=== PATIENT | female | born 1955 | race Caucasian/White ===

== ENCOUNTER → 2019-11-04 05:07 | Outpatient (CLI) | payer MEDICARE, MEDICAID, SELFPAY ==
[2019-11-04 07:05] LABS: INR 2.47 (0.9-1.1); Prothrombin Time 24.6 seconds (9.4-11.8)
== END ==
PROVIDERS: PCP Emergency Medicine; Visit Provider Emergency Medicine
DX: Z51.81 Encounter for therapeutic drug level monitoring (principal); Z79.01 Long term (current) use of anticoagulants
CPT/HCPCS: 85610

== ENCOUNTER → 2019-12-16 09:50 | Outpatient (CLI) | payer MEDICARE, MEDICAID, SELFPAY ==
--- NOTE | 2019-12-16 09:54 | MM_ITS ---
PROCEDURE: MM DIG SCREENING MAMM BI W/CAD Digital Breast Tomosynthesis Included CLINICAL INDICATION: SCREENING The patient is from a [facility] and there is limited information, and the patient is not sure when or where previous mammograms were performed COMPARISON: No exams were available for comparison TECHNIQUE: Standard CC and MLO images and 3D Tomosynthesis was obtained. R2 CAD reviewed. FINDINGS: Mild to moderate scattered fibroglandular densities are seen in both breasts. The nipples are inverted bilaterally. There is a possible asymmetric density right breast best seen on the CC projection and CC lacy images. There is questionable asymmetric density central portion of the right breast on the MLO projection recommend the patient return for spot compression views and ultrasound for additional evaluation. IMPRESSION: Fibrofatty parenchyma with possible asymmetric density and/or densities BI-RAD Category: 0 Need Additional Imaging Evaluation FOLLOW-UP: IMM Immediate Follow-up Recommended (A letter has been sent to the patient regarding results of the study.) Dictated by: Dr. Robby Bashir MD 12/17/2019 08:[address] Robby Bashir MD in [place] 12/17/2019 08:30
== END ==
PROVIDERS: PCP Emergency Medicine; Visit Provider Emergency Medicine
DX: Z12.31 Encounter for screening mammogram for malignant neoplasm of breast (principal)
CPT/HCPCS: 77063; 77067

== ENCOUNTER → 2019-12-24 13:29 | Outpatient (CLI) | payer MEDICARE, MEDICAID, SELFPAY ==
--- NOTE | 2019-12-24 13:43 | MM_ITS ---
PROCEDURE: MM DIG MAMM DX UNILAT RT CAD Digital Breast Tomosynthesis Included CLINICAL INDICATION: ABN MAMM Possible asymmetric glandular elements central portion right breast COMPARISON: No exams were available for comparison TECHNIQUE: Standard CC and MLO images and 3D Tomosynthesis was obtained. R2 CAD reviewed. FINDINGS: The patient returns for additional views right breast with spot compression MLO and CC views and 90 degree lateral view. The additional views particularly the spot compression views show the area to compress lessening concern for a true lesion. Ultrasound exam performed the same date showed no abnormality. IMPRESSION: Basically negative problem solving views with mild asymmetric glandular elements right breast but with no suspicious lesions seen BI-RAD Category: 1 Negative FOLLOW-UP: 1YR 1 Year Follow-up (A letter has been sent to the patient regarding results of the study.) Dictated by: Dr. Robby Bashir MD 12/30/2019 07:[address] Robby Bashir MD in [place] 12/30/2019 07:41
--- NOTE | 2019-12-24 13:43 | US_ITS ---
PROCEDURE: US BREAST RT COMPLETE CLINICAL INDICATION: ABN MAMM Possible asymmetric glandular elements central portion right breast COMPARISON: No exams were available for comparison FINDINGS: Targeted imaging of the central portion of the right breast shows no abnormal cystic or solid lesion and there are no findings to suggest architectural distortion. There is a normal appearing node in the axilla. IMPRESSION: Negative ultrasound right breast Dictated by: Dr. Robby Bashir MD 12/30/2019 07:[address] Robby Bashir MD in [place] 12/30/2019 07:38
== END ==
PROVIDERS: PCP Emergency Medicine; Visit Provider Emergency Medicine
DX: R92.8 Other abnormal and inconclusive findings on diagnostic imaging of breast (principal)
CPT/HCPCS: 76641; 77061; 77065; G0279

== ENCOUNTER → 2020-08-01 02:11 | Outpatient (CLI) | payer MEDICARE, MEDICAID, SELFPAY ==
[2020-08-02 11:03] LABS: Covid-19 Nasal PCR Sendout P&C POSITIVE
== END ==
PROVIDERS: Visit Provider Emergency Medicine
DX: U07.1 COVID-19 (principal)
CPT/HCPCS: U0004

== ENCOUNTER → 2020-12-20 09:24 | Outpatient (CLI) | payer MEDICARE, MEDICAID, SELFPAY ==
--- NOTE | 2020-12-20 09:28 | MM_ITS ---
PROCEDURE INFORMATION: Exam: MG Screening 3D Mammography Exam date and time: 12/20/2020 9:28 AM Age: 65 years old Clinical indication: Encounter for screening mammogram for malignant neoplasm of breast TECHNIQUE: Imaging protocol: Screening tomosynthesis and 2D mammography including computer-aided detection (CAD) when performed. COMPARISON: 1. MG MM DIG MAMM DX UNILAT RT CAD 12/24/2019 1:46 PM 2. MG MM DIG SCREENING MAMM BI W/CAD 12/16/2019 9:59 AM FINDINGS: MAMMOGRAPHY: Breast composition: The breast tissue is composed of scattered areas of fibroglandular density. Mass: None. Architectural distortion: None. Calcifications: No suspicious calcifications. Asymmetric density: None. Skin thickening: None. Axillary adenopathy: None. IMPRESSION: No mammographic evidence of malignancy. Annual screening is recommended unless otherwise clinically indicated. ASSESSMENT: BI-RADS Category 1: Negative
== END ==
PROVIDERS: PCP Emergency Medicine; Visit Provider Emergency Medicine
DX: Z12.31 Encounter for screening mammogram for malignant neoplasm of breast (principal)
CPT/HCPCS: 77063; 77067

== ENCOUNTER → 2021-12-24 14:42 | Outpatient (CLI) | payer MEDICARE, MEDICAID, SELFPAY ==
--- NOTE | 2021-12-24 14:46 | MM_ITS ---
PROCEDURE INFORMATION: Exam: MG Bilateral Screening 3D Mammography Exam date and time: 12/24/2021 2:41 PM Age: 66 years old Clinical indication: Screening mammogram. Family history of breast cancer TECHNIQUE: Imaging protocol: Bilateral Screening tomosynthesis and 2D mammography including computer-aided detection (CAD) when performed. COMPARISON: 1. MG MM DIG SCREENING MAMM BI W/CAD 12/20/2020 9:26 AM 2. MG MM DIG MAMM DX UNILAT RT CAD 12/24/2019 1:46 PM 3. MG MM DIG SCREENING MAMM BI W/CAD 12/16/2019 9:59 AM 4. US BREAST RT COMPLETE 12/24/2019 1:55 PM FINDINGS: MAMMOGRAPHY: Breast composition: There are scattered areas of fibroglandular density. Mass: None. Architectural distortion: No new or suspicious architectural distortion. Calcifications: No new or suspicious calcifications are present Asymmetric density: No new or suspicious asymmetric density is present Skin thickening: None. Axillary adenopathy: None. IMPRESSION: No mammographic evidence of malignancy. Recommend annual screening mammography unless otherwise clinically indicated. ASSESSMENT: BI-RADS category 1: Negative
== END ==
PROVIDERS: PCP Emergency Medicine; Visit Provider Emergency Medicine
DX: Z12.31 Encounter for screening mammogram for malignant neoplasm of breast (principal)
CPT/HCPCS: 77063; 77067

== ENCOUNTER → 2022-11-08 22:51 | Outpatient (CLI) | payer MEDICARE, MEDICAID, SELFPAY ==
[2022-11-08 23:00] LABS: Microscopic, Urine URINE MICROSCOPIC (MICROSCOPIC)
[2022-11-09 00:55] LABS: Appearance,Urine CLEAR (Clear); Bilirubin,Urine Negative (Negative); Blood, Urine Negative (Negative); Color,Urine YELLOW (Yellow); Glucose,Urine (UA) Negative (Negative); Ketones,Urine Negative (Negative); Leukocyte Esterase,Urine Negative (Negative); Nitrate,Urine Negative (Negative); PH,Urine 5.5 (5.0-8.5); Protein,Urine Negative (Negative); Specific Gravity, Urine >= 1.030 (1.005-1.030); Urobilinogen,Urine 0.2 EU/dl (0.2)
[2022-11-09 02:19] LABS: Bacteria,Urine Trace /lpf; Calcium Oxalate Crystals,Urine 2+ /lpf
== END ==
PROVIDERS: PCP Emergency Medicine; Visit Provider Emergency Medicine
DX: Z79.899 Other long term (current) drug therapy (principal)
CPT/HCPCS: 81001

== ENCOUNTER → 2022-12-27 15:03 | Outpatient (CLI) | payer MEDICARE, MEDICAID, SELFPAY ==
--- NOTE | 2022-12-27 15:03 | MM_ITS ---
PROCEDURE INFORMATION: Exam: MG Bilateral Screening 3D Mammography Exam date and time: 12/27/2022 2:51 PM Age: 67 years old Clinical indication: Screening examination TECHNIQUE: Imaging protocol: Bilateral Screening tomosynthesis and 2D mammography including computer-aided detection (CAD) when performed. COMPARISON: 1. MG MM DIG SCREENING MAMM BI W/CAD 12/24/2021 2:41 PM 2. MG MM DIG SCREENING MAMM BI W/CAD 12/20/2020 9:26 AM FINDINGS: MAMMOGRAPHY: Breast composition: There are scattered areas of fibroglandular density. Mass: None. Architectural distortion: None. Calcifications: No suspicious calcifications. Asymmetric density: None. Skin thickening: None. Axillary adenopathy: None. IMPRESSION: No mammographic evidence of malignancy. Annual screening is recommended unless otherwise clinically indicated. ASSESSMENT: BI-RADS Category 1: Negative
== END ==
PROVIDERS: PCP Emergency Medicine; Visit Provider Emergency Medicine
DX: Z12.31 Encounter for screening mammogram for malignant neoplasm of breast (principal)
CPT/HCPCS: 77063; 77067

== ENCOUNTER → 2023-06-17 16:50 | Outpatient (CLI) | payer MEDICARE, MEDICAID, SELFPAY ==
[2023-06-17 19:47] LABS: Chloride 103 mmol/L (98-107); Potassium 4.7 mmoL/L (3.5-5.1); Sodium 138 mmol/L (136-145)
[2023-06-17 19:50] LABS: Alanine Aminotransferase 17 U/L (12-78); Albumin Level 3.9 g/dl (3.5-5.0); Albumin/Globulin Ratio 1.5 (1.1-1.8); Alkaline Phosphatase 73 U/L (38-126); Anion Gap 10.7 mEq/L (5-15); Aspartate Amino Transferase 24 U/L (14-36); Bilirubin,Total 0.3 mg/dl (0.2-1.3); Blood Urea Nitrogen 21 mg/dl (7-17); Carbon Dioxide 29 mmol/L (22.0-30.0); Estimated Glomerular Filt Rate 62 ml/min (>60); GFR (African American) 76 ML/MIN (>60); Globulin 2.6 g/dL (1.3-3.2); Total Protein,Serum 6.5 g/dl (6.3-8.2)
[2023-06-17 19:51] LABS: Calcium 8.9 mg/dl (8.4-10.2); Glucose 81 mg/dl (74-100)
== END ==
PROVIDERS: PCP Obstetrics & Gynecology; Visit Provider Obstetrics & Gynecology
DX: I26.99 Other pulmonary embolism without acute cor pulmonale (principal)
CPT/HCPCS: 80053

== ENCOUNTER 2023-07-14 13:33 | Outpatient (CLI) | payer MEDICARE, MEDICAID, SELFPAY ==
[2023-07-14 13:58] LABS: INR 1.32 (0.9-1.1)
== END 2023-07-14 23:59 ==
LOC: LAB.DROPOF 13:35
PROVIDERS: PCP Internal Medicine; Visit Provider Internal Medicine
DX: Z51.81 Encounter for therapeutic drug level monitoring; Z79.01 Long term (current) use of anticoagulants
CPT/HCPCS: 85610

== ENCOUNTER 2024-06-14 15:16 | Outpatient (CLI) | payer MEDICARE, MEDICAID, SELFPAY ==
--- NOTE | 2024-06-14 15:27 | MM_ITS ---
PROCEDURE INFORMATION: Exam: MG Bilateral Screening 3D Mammography Exam date and time: 06/14/2024 3:13 PM Age: 68 years old Clinical indication: Screening examination TECHNIQUE: Imaging protocol: Bilateral Screening tomosynthesis and 2D mammography including computer-aided detection (CAD) when performed. COMPARISON: 1. MG MM DIG SCREENING MAMM BI W/CAD 12/27/2022 2:51 PM 2. MG MM DIG SCREENING MAMM BI W/CAD 12/24/2021 2:41 PM FINDINGS: MAMMOGRAPHY: Breast composition: There are scattered areas of fibroglandular density. Mass: None. Architectural distortion: None. Calcifications: No suspicious calcifications. Asymmetric density: None. Skin thickening: None. Axillary adenopathy: None. IMPRESSION: No mammographic evidence of malignancy. Annual screening is recommended unless otherwise clinically indicated. ASSESSMENT: BI-RADS Category 1: Negative.
== END 2024-06-14 23:59 | disposition home or self-care (01) ==
LOC: RAD 15:17
PROVIDERS: PCP Nurse Practitioner Family; Visit Provider Nurse Practitioner Family
DX: Z12.31 Encounter for screening mammogram for malignant neoplasm of breast (principal)
CPT/HCPCS: 77063; 77067

== ENCOUNTER 2024-10-21 08:33 | Outpatient (CLI) | payer MEDICARE, MEDICAID, SELFPAY ==
[2024-10-21 08:51] LABS: Microscopic, Urine URINE MICROSCOPIC (MICROSCOPIC)
[2024-10-21 09:09] LABS: Appearance,Urine CLOUDY (Clear); Bilirubin,Urine Negative (Negative); Blood, Urine Negative (Negative); Color,Urine YELLOW (Yellow); Glucose,Urine (UA) Negative (Negative); Ketones,Urine Negative (Negative); Leukocyte Esterase,Urine 3+ (Negative); Nitrate,Urine POSITIVE (Negative); Protein,Urine Negative (Negative); Specific Gravity, Urine 1.015 (1.005-1.030); Urobilinogen,Urine 0.2 EU/dl (0.2)
[2024-10-21 09:23] LABS: Bacteria,Urine 4+ /lpf; WBC,Urine 20-50 #/hpf (0-3)
== END 2024-10-21 23:59 | disposition home or self-care (01) ==
LOC: LAB.DROPOF 08:34
PROVIDERS: PCP Family Medicine; Visit Provider Family Medicine
DX: R30.0 Dysuria (principal)
CPT/HCPCS: 81001; 87086; 87088; 87186

== ENCOUNTER 2024-12-10 08:03 | Outpatient (CLI) | payer MEDICARE, MEDICAID, SELFPAY ==
[2024-12-10 09:21] LABS: Chol/HDL Ratio 3.3 (1-3.5); Cholesterol 195 mg/dl (140-200); HDL Cholesterol 60 mg/dl (40-60); Triglycerides 111 mg/dl (30-150); VLDL Cholesterol 22 mg/dL (0-40)
== END 2024-12-10 23:59 | disposition home or self-care (01) ==
PROVIDERS: PCP Family Medicine; Visit Provider Nurse Practitioner Family
DX: Z79.899 Other long term (current) drug therapy (principal); Z13.220 Encounter for screening for lipoid disorders
CPT/HCPCS: 36415; 80061

== ENCOUNTER 2025-02-23 06:59 | Outpatient (CLI) | payer MEDICARE, MEDICAID, SELFPAY ==
--- OUTSIDE RECORDS SUMMARY | 2025-02-23 07:01 | XMS_ITS | Clinical Summary ---
Author Organization [facility] Address [address] [place] [phone] Phone Care Team Providers Care Nut And Bolt Assembler Name Role Phone Unavailable Primary Care Provider Unavailabl e Allergies No known active allergies Medications * This document contains information received from the source organization and may not represent a complete record from that organization. risperiDONE (RISPERDAL) 1 mg Oral TabletIndication s:Schizoaffectiv e disorder, unspecified type (HCC) Take one tablet three times daily 90 Tab 5 04/01/2016 Active Active Problems Problem Noted Date Diagnosed Date Schizoaffective disorder 04/01/2016 Moderate intellectual disability 04/01/2016 Social History Tobacco Use Types Packs/Day Years Used Date Smoking Tobacco: Former Smokeless Tobacco: Never Alcohol Use Standard Drinks/Week Comments Not Currently 0 (1 standard drink = 0.6 oz pur e alcohol) Sexually Active Control Partners Comments Not Currently Comments Unknown Sex and Gender Information Value Date Recorded Sex Assigned at Not on file Legal Sex Female 9:54 AM EDT Gender Identity Not on file Sexual Orientation Not on file Obstetrics History Plan of Treatment Health Maintenance Due Date Last Done Comments Wellness Exam Medicare 1958 Hepatitis C Screening 1973 DTaP/TDaP/Td (1 - Tdap) 1974 Breast Cancer Screening 1995 Cologuard 2000 Colon Cancer Screening 2000 Colonoscopy 2000 FIT 2000 Sigmoidoscopy 2000 Virtual Colonography 2000 Pneumococcal Vaccine 50+ (1 of 1 - PCV) 2005 Zoster (1 of 2) 2005 Bone Density Screening 2020 COVID-19 Vaccine ( - 2023-2 5 season) 2024 Influenza Vaccine (#1) 2025 Hepatitis B Vaccine Aged Out No longe r eligible based on patient's age to complete this topic Meningococcal B Vaccine Aged Out No l onger eligible based on patient's age to complete this topic Insurance SUSANA [place]LEY [id number] [place] [address] MEDICAID [place]
[2025-02-23 07:07] LABS: Hematocrit 41.7 % (37.0-47.0); Hemoglobin 13.5 g/dL (12.2-16.2); Mean Corpuscular HGB Conc 32.4 g/dL (31.8-35.4); Mean Corpuscular Hemoglobin 26.8 pg (27.0-31.2); Mean Corpuscular Volume 82.9 fl (81-99); Platelet Count 229 K/mm3 (142-424); Red Blood Count 5.03 M/mm3 (4.20-5.40); White Blood Count 5.7 K/mm3 (4.8-10.8)
[2025-02-23 07:32] LABS: Albumin Level 3.8 g/dl (3.5-5.0); Chloride 105 mmol/L (98-107)
[2025-02-23 07:33] LABS: Potassium 4.3 mmoL/L (3.5-5.1); Sodium 138 mmol/L (136-145)
[2025-02-23 07:35] LABS: Alanine Aminotransferase 13 U/L (12-78); Anion Gap 7.3 mEq/L (5-15); Aspartate Amino Transferase 20 U/L (14-36); Blood Urea Nitrogen 18 mg/dl (7-17); Carbon Dioxide 30 mmol/L (22.0-30.0); Creatinine,Serum 0.80 mg/dl (0.52-1.04); Estimated Glomerular Filt Rate 71 ml/min (>60); GFR (African American) 86 ML/MIN (>60)
[2025-02-23 07:36] LABS: Albumin/Globulin Ratio 1.6 (1.1-1.8); Alkaline Phosphatase 80 U/L (38-126); Bilirubin,Total 0.4 mg/dl (0.2-1.3); Calcium 9.2 mg/dl (8.4-10.2); Globulin 2.4 g/dL (1.3-3.2); Glucose 81 mg/dl (74-100); Iron 59 ug/dL (37-170); Total Protein,Serum 6.2 g/dl (6.3-8.2)
[2025-02-23 07:46] LABS: Total Iron Binding Capacity 299 ug/dL (265-497)
[2025-02-23 08:09] LABS: Thyroid Stimulating Hormone 5.91 uIU/mL (0.465-4.68)
[2025-02-23 08:13] LABS: Ferritin 20.3 ng/ml (11.1-264)
[2025-02-23 08:25] LABS: Hepatitis C Ab Qual. W/ RFX NEGATIVE (Negative)
[2025-02-23 08:26] LABS: RBC Morphology Normal
[2025-02-23 08:27] LABS: Total Cells Counted 100
[2025-02-23 12:56] LABS: Free T4 (Free Thyroxine) 1.02 ng/dl (0.78-2.19)
== END 2025-02-23 23:59 | disposition home or self-care (01) ==
PROVIDERS: PCP Nurse Practitioner Family; Visit Provider Nurse Practitioner Family
DX: D50.9 Iron deficiency anemia, unspecified (principal); R63.5 Abnormal weight gain; F25.9 Schizoaffective disorder, unspecified; Z11.4 Encounter for screening for human immunodeficiency virus [HIV]; Z11.59 Encounter for screening for other viral diseases
CPT/HCPCS: 36415; 80053; 82728; 83540; 83550; 84439; 84443; 85007; 85014; 85018; 85048; 85049; 86803; 87389

== ENCOUNTER 2025-05-09 16:47 | Outpatient (CLI) | payer MEDICARE, MEDICAID, SELFPAY ==
--- OUTSIDE RECORDS SUMMARY | 2025-05-09 16:53 | XMS_ITS | Clinical Summary ---
Author Organization [facility] Address [address] [place] [phone] Phone Care Team Providers Care Wig Stylist Name Role Phone Unavailable Primary Care Provider [...] on file Sexual Orientation Not on file Plan of Treatment Health Maintenance Due Date Last Done Comments Wellness Exam Medicare 1958 Hepatitis C Screening 1973 DTaP/TDaP/Td (1 - Tdap) 1974 Breast Cancer Screening 1995 Cologuard 2000 Colon Cancer Screening 2000 Colonoscopy 2000 FIT 2000 Sigmoidoscopy 2000 Virtual Colonography 2000 Pneumococcal Vaccine 50+ (1 of 1 - PCV) 2005 Zoster (1 of 2) 2005 Bone Density Screening 2020 COVID-19 Vaccine (2024-2 6 season) 2025 Influenza Vaccine (#1) 2025 Hepatitis B Vaccine Aged Out No longe r eligible based on patient's age to complete this topic Meningococcal B Vaccine Aged Out No l onger eligible based on patient's age to complete this topic Insurance SUSA[place] [id number] [place] [address] MED[place]
[2025-05-09 18:05] LABS: Coronavirus 19, PCR Not Detected (NotDetected); Influenza A, PCR Not Detected (NotDetected); Influenza B, PCR Not Detected (NotDetected)
== END 2025-05-09 23:59 | disposition home or self-care (01) ==
PROVIDERS: PCP Family Medicine; Visit Provider Family Medicine
DX: J18.9 Pneumonia, unspecified organism (principal); R09.89 Other specified symptoms and signs involving the circulatory and respiratory systems; R05.1 Acute cough
CPT/HCPCS: 87631

== ENCOUNTER 2025-05-27 07:43 | Outpatient (CLI) | payer MEDICARE, MEDICAID, SELFPAY ==
--- OUTSIDE RECORDS SUMMARY | 2025-05-27 07:46 | XMS_ITS | Clinical Summary ---
Author Organization [facility] Address [address] [place] [phone] Phone Care Team Providers Care Qual Field Manager Name Role Phone Unavailable Primary Care Provider [...] to complete this topic Insurance SUSANA [place]LEY [id number] [place] [address] [place]
[2025-05-27 08:55] LABS: Free T4 (Free Thyroxine) 0.86 ng/dl (0.78-2.19)
[2025-05-27 09:08] LABS: Thyroid Stimulating Hormone 2.65 uIU/mL (0.465-4.68)
== END 2025-05-27 23:59 | disposition home or self-care (01) ==
LOC: LAB.DROPOF 07:44
PROVIDERS: PCP Family Medicine; Visit Provider Nurse Practitioner Family
DX: E03.9 Hypothyroidism, unspecified (principal)
CPT/HCPCS: 36415; 83970; 84439; 84443

== ENCOUNTER 2025-05-30 08:21 | Outpatient (CLI) | payer MEDICARE, MEDICAID, SELFPAY ==
[2025-05-30 09:04] LABS: Free T4 (Free Thyroxine) 0.88 ng/dl (0.78-2.19)
[2025-05-30 09:16] LABS: Thyroid Stimulating Hormone 3.57 uIU/mL (0.465-4.68)
== END 2025-05-30 23:59 | disposition home or self-care (01) ==
LOC: LAB.DROPOF 08:22
PROVIDERS: PCP Family Medicine; Visit Provider Nurse Practitioner Family
DX: E03.9 Hypothyroidism, unspecified (principal)
CPT/HCPCS: 36415; 84439; 84443; 86376

== ENCOUNTER 2025-06-13 06:12 | Outpatient (CLI) | payer MEDICARE, MEDICAID, SELFPAY ==
--- OUTSIDE RECORDS SUMMARY | 2025-06-13 06:15 | XMS_ITS | Clinical Summary ---
Author Organization [facility] Address [address] [place] [phone] Phone Care Team Providers Care Marketing Information Manager Name Role Phone Unavailable Primary Care [...] to complete this topic Insurance SUSANA [place]LEY [id number] [place] [address] [place]
[2025-06-13 06:26] LABS: Hematocrit 40.3 % (37.0-47.0); Hemoglobin 13.2 g/dL (12.2-16.2); Immature Granulocytes % 0.2 %; Mean Corpuscular HGB Conc 32.8 g/dL (31.8-35.4); Mean Corpuscular Hemoglobin 27.0 pg (27.0-31.2); Mean Corpuscular Volume 82.6 fl (81-99); Nucleated Red Blood Cells % 0 %; Platelet Count 248 K/mm3 (142-424); Red Blood Count 4.88 M/mm3 (4.20-5.40); Red Cell Distribution Width-SD 39.8 fL; White Blood Count 4.6 K/mm3 (4.8-10.8)
[2025-06-13 06:59] LABS: Iron 59 ug/dL (37-170)
[2025-06-13 07:06] LABS: Valproic Acid, (Depakene) 16.6 ug/ml (50-100)
[2025-06-13 07:10] LABS: Total Iron Binding Capacity 242 ug/dL (265-497)
[2025-06-13 07:35] LABS: Ferritin 20.4 ng/ml (11.1-264)
== END 2025-06-13 23:59 | disposition home or self-care (01) ==
LOC: LAB.DROPOF 06:13
PROVIDERS: PCP Family Medicine; Visit Provider Family Medicine
DX: D50.9 Iron deficiency anemia, unspecified (principal); Z51.81 Encounter for therapeutic drug level monitoring
CPT/HCPCS: 36415; 80164; 82728; 83540; 83550; 85025

== ENCOUNTER 2025-06-22 10:21 | Outpatient (CLI) | payer MEDICARE, MEDICAID, SELFPAY ==
[2025-06-22 11:02] LABS: Hematocrit 43.2 % (37.0-47.0); Hemoglobin 14.0 g/dL (12.2-16.2); Immature Granulocytes % 0.2 %; Mean Corpuscular HGB Conc 32.4 g/dL (31.8-35.4); Mean Corpuscular Hemoglobin 26.9 pg (27.0-31.2); Mean Corpuscular Volume 82.9 fl (81-99); Nucleated Red Blood Cells % 0 %; Platelet Count 275 K/mm3 (142-424); Red Blood Count 5.21 M/mm3 (4.20-5.40); Red Cell Distribution Width-SD 39.9 fL; White Blood Count 5.9 K/mm3 (4.8-10.8)
[2025-06-22 11:31] LABS: Iron 69 ug/dL (37-170)
[2025-06-22 11:42] LABS: Total Iron Binding Capacity 291 ug/dL (265-497); Valproic Acid, (Depakene) 11.2 ug/ml (50-100)
[2025-06-22 12:07] LABS: Ferritin 40.3 ng/ml (11.1-264)
== END 2025-06-22 23:59 | disposition home or self-care (01) ==
LOC: LAB.DROPOF 10:22
PROVIDERS: PCP Family Medicine; Visit Provider Nurse Practitioner Family
DX: D50.9 Iron deficiency anemia, unspecified (principal)
CPT/HCPCS: 36415; 80164; 82728; 83540; 83550; 85025